=== PATIENT | male | born 1955 | race Caucasian/White ===

== ENCOUNTER 2019-10-20 05:30 | Day surgery (SDC) | payer OTHER ==
[2019-10-20] MEDS ORDERED: Phenylephrine 2.5% Ophth Soln 5 ML BOT ONE (05:51)
[2019-10-20] MEDS ORDERED: Cyclopentolate 1% Opth Drop 2 ML BOT ONE (05:51)
[2019-10-20] MEDS ORDERED: EPINEPHrine 0.3 MG in Ophthalmic Irrigation Solution 500 ML IRR SCH (06:00)
[2019-10-20] MEDS ORDERED: Fentanyl 100 MCG/2 ML VIAL ONE (06:49)
[2019-10-20] MEDS ORDERED: PROPOFOL 60 ML ONE (06:49)
[2019-10-20] MEDS ORDERED: Midazolam HCl 2 mg/2 ml Vial ONE (06:49)
[2019-10-20] MEDS ORDERED: Maxitrol 0.1% Opth Oint 3.5 GM TUBE ONE (09:56)
[2019-10-20] MEDS ORDERED: Lidocaine 4% PF 5 ML AMP ONE (09:56)
[2019-10-20] MEDS ORDERED: CEFAZOLIN 1 GM VIAL ONE (09:56)
[2019-10-20] MEDS ORDERED: Triamcinolone 40 MG/ML VIAL ONE (09:56)
[2019-10-20] MEDS ORDERED: Bupivacaine PF 0.75% SDV 10 ML ONE (09:56)
[2019-10-20] MEDS ORDERED: Lidocaine 1% PF 5 ML VIAL ONE (09:56)
--- NOTE | 2019-10-21 13:27 | OP ---
DATE OF PROCEDURE: 10/20/2019 PREOPERATIVE DIAGNOSES: Vitreous membranes and strands. POSTOPERATIVE DIAGNOSES: Vitreous membranes and strands. PROCEDURES PERFORMED: Pars plana vitrectomy and membrane peel, left eye. ANESTHESIA: Local with monitored anesthesia care. DESCRIPTION OF PROCEDURE: The patient was identified in the preoperative holding area. Appropriate informed consent for the planned surgical procedure on the left eye had been obtained. The patient was transported to the operative suite. Appropriate cardiopulmonary monitoring was established. Local anesthesia obtained using retrobulbar block. The patient was prepped and draped in usual sterile manner for ophthalmic surgery. Left eye lid speculum was placed in left eye. A 27-gauge trocar was placed in the conjunctiva and sclera supratemporally, inferotemporally, and supranasally. Infusion line was placed inferotemporally. Light pipe and vitreous cutter inserted into the eye. Core vitrectomy was performed. Large vitreous membranes and strands were removed from the vitreous and peeled from the retinal surface. Indirect ophthalmoscopy was used to exam the retina at 360 degrees. No holes, breaks, or tears were identified. Prophylactic laser was placed behind the sclerotomy sites. Trocars were removed. Eye was noted to retain pressure well. Retrobulbar Kenalog and subconjunctival Ancef were placed. Antibiotic ointment was placed. Eye was patched and shielded. The patient was taken to postoperative recovery unit in good condition, having suffered no immediate perioperative complications. The patient was instructed to keep patch shield on, avoid lifting or bending. Followup appointment with Dr. Luo. Job ID: [id number]
== END 2019-10-20 08:30 | disposition home or self-care (01) ==
LOC: SDC 05:30
PROVIDERS: ATTEND Ophthalmology Retina Specialist
PROC: 08NF3ZZ Release Left Retina, Percutaneous Approach (ICD-10-PCS; principal; 2019-10-20)
PROC: 08T53ZZ Resection of Left Vitreous, Percutaneous Approach (ICD-10-PCS; principal; 2019-10-20)
DX: H43.312 Vitreous membranes and strands, left eye (principal); M19.90 Unspecified osteoarthritis, unspecified site
CPT/HCPCS: J0171; J0690; J2001; J2250; J2704; J3010; J3301; J3490

== ENCOUNTER 2022-04-03 06:49 | Day surgery (SDC) | payer MEDICARE, OTHER ==
[2022-04-01 12:10] VITALS: BMI 20.6
[~2022-04-03 06:49] MED LIST: Fluorouracil 100 MG, Enoxaparin 25 MG, EPINEPHrine 0.3 MG in Ophthalmic Irrigation Solu... IRR SCH; Midazolam HCl 2 mg/2 ml Vial ONE; fentaNYL PF 100 MCG/2 ML SYRINGE ONE
[2022-04-03] MEDS ORDERED: Cyclopentolate 1% Opth Drop 2 ML BOT ONE (07:14)
[2022-04-03] MEDS ORDERED: Phenylephrine 2.5% Ophth Soln 5 ML BOT ONE (07:14)
[2022-04-03] MEDS ORDERED: Bupivacaine 0.75% 10 ML VIAL ONE (08:59)
[2022-04-03] MEDS ORDERED: Lidocaine 4% PF 5 ML AMP ONE (08:59)
[2022-04-03] MEDS ORDERED: CEFAZOLIN 1 GM VIAL ONE (08:59)
[2022-04-03] MEDS ORDERED: Lidocaine 1% PF 5 ML VIAL ONE (08:59)
[2022-04-03] MEDS ORDERED: Maxitrol 0.1% Opth Oint 3.5 GM TUBE ONE (08:59)
[2022-04-03] MEDS ORDERED: PROPOFOL 200 MG/20 ML VIAL ONE (08:59)
[2022-04-03] MEDS ORDERED: Indocyanine Green 25 MG/10 ML VIAL ONE (08:59)
[2022-04-03] MEDS ORDERED: Triamcinolone 40 MG/ML VIAL ONE (08:59)
[2022-04-03] MEDS ORDERED: TISSUEBLUE 0.5 ML SYRINGE IO ONE (09:35)
== END 2022-04-03 11:00 | disposition home or self-care (01) ==
LOC: SDC 06:49
PROVIDERS: ATTEND Ophthalmology Retina Specialist
PROC: 08T53ZZ Resection of Left Vitreous, Percutaneous Approach (ICD-10-PCS; principal; 2022-04-03)
PROC: 08NF3ZZ Release Left Retina, Percutaneous Approach (ICD-10-PCS; 2022-04-03)
DX: H35.372 Puckering of macula, left eye (principal); M19.90 Unspecified osteoarthritis, unspecified site
CPT/HCPCS: J0171; J0690; J1650; J2250; J2704; J3301; J3490; J9190